=== PATIENT | female | born 1990 | race Caucasian/White ===

== ENCOUNTER 2016-10-21 11:00 | Emergency (ER) | payer OTHER, MEDICAID ==
[~2016-10-21 11:00] MED LIST: COLACE100 MG PO; DULCOLAX10 MG/SUPP RC; MOTRIN800 MG PO; OXYIR5 MG PO; PRENATAL1 EACH PO; ROXICODONE5 MG PO; SURFAK240 M1 PO; ZOFRAN4 MG PO
[2016-10-21] MEDS ORDERED: IBUPROFEN800 M1 PO (13:37)
== END 2016-10-21 13:44 ==
LOC: EDMED 11:00
DX: M79.631 Pain in right forearm (principal); R22.31 Localized swelling, mass and lump, right upper limb